=== PATIENT | male | born 1950 | race Caucasian/White ===

== ENCOUNTER 2021-09-28 05:33 | Outpatient (CLI) | payer MEDICARE ==
[~2021-09-28] VITALS: Ht 167.6 cm; Wt 88.0 kg
[~2021-09-28 05:33] MED LIST: AMIO200T65 PO; ASPI-586 PO; CARV6.252 PO; CHOL10007 PO; ESZO2TAB31 PO; LOSA50TA63 PO; METO-333 PO; PANT40TA2 PO; SERT50TA2 PO
[2021-09-28] MEDS ORDERED: FLUT16SP22 NS (15:27)
[2021-09-28] MEDS ORDERED: CARV12.53 PO (15:27)
[2021-09-28] MEDS ORDERED: IBUP-1780 PO (15:27)
[2021-09-28] MEDS ORDERED: ISOS30TA82 PO (15:27)
== END 2021-09-28 15:29 | disposition home or self-care (01) ==
LOC: PREOP 05:33
PROVIDERS: ATTEND Surgery
DX: Z01.818 Encounter for other preprocedural examination (principal)

== ENCOUNTER 2021-10-11 07:53 | Day surgery (SDC) | payer MEDICARE ==
[~2021-10-11] VITALS: Ht 167.6 cm; Wt 88.0 kg
[~2021-10-11 07:53] MED LIST changes: +CARV12.53 PO; +FLUT16SP22 NS; +IBUP-1780 PO; +ISOS30TA82 PO
[2021-10-11] MEDS ORDERED: LACTATED RINGERS 1,000 ML IV ONE (08:04)
[2021-10-11] MEDS ORDERED: LACTATED RINGERS 1,000 ML IV STA (08:12)
[2021-10-11 08:25] VITALS: BP 101/68
--- NOTE | 2021-10-11 08:52 | Progress Note-Pre Operative ---
Pre-Operative Progress Note H&P Reviewed The H&P was reviewed, patient examined and no changes noted. Date Seen by Provider: Oct 11, 2021 Time Seen by Provider: 08:52 Date H&P Reviewed: Oct 11, 2021 Time H&P Reviewed: 08:52 Pre-Operative Diagnosis: history of polyps JESSICA REED DO Oct 11, 2021 08:52
[2021-10-11] MEDS ORDERED: PROPOFOL INJECTION 50 ML IV ONE (09:09)
[2021-10-11 09:35] VITALS: BP 71/48
--- NOTE | 2021-10-11 09:36 | Anesthesia-General Post-Op ---
MAC Patient Condition Mental Status/LOC: Same as Preop Cardiovascular: Satisfactory Nausea/Vomiting: Absent Respiratory: Satisfactory Pain: Controlled Complications: Absent Post Op Complications Complications None Follow Up Care/Instructions Patient Instructions None needed. Anesthesiology Discharge Order Discharge Order Patient is doing well, no complaints, stable vital signs, no apparent adverse anesthesia problems. No complications reported per nursing. ROOSEVELT COSBY CRNA Oct 11, 2021 09:36
--- NOTE | 2021-10-11 09:37 | Progress Note-Post Operative ---
Post-Operative Progess Note Surgeon (s)/Fern Gatherer (s) Surgeon JESSICA REED DO Fern Gatherer: na Pre-Operative Diagnosis history of polyps Post-Operative Diagnosis colon polyps, diverticulosis Procedure & Operative Findings Date of Procedure 10/11/21 Procedure Performed/Findings colonoscopy c hot bx polypectomy x 2 Anesthesia Type per oil inspector Estimated Blood Loss Estimated blood loss (mL): none Specimens/Packing Specimens Removed colon polyps JESSICA REED DO Oct 11, 2021 09:37
[2021-10-11 09:40] VITALS: BP 79/50
[2021-10-11 09:42] VITALS: BP 79/50
[2021-10-11 10:00] VITALS: BP 75/57
--- NOTE | 2021-10-11 10:12 | Discharge Inst-Simple/Standard ---
Discharge Inst-Standard Patient Instructions/Follow Up Plan of Care/Instructions/FU: 2 weeks Alexandru Activity as Tolerated: Yes Discharge Diet: Regular Diet (high fiber) JESSICA REED DO Oct 11, 2021 10:12
--- NOTE | 2021-10-11 17:01 | OPERATIVE REPORT ---
DATE OF SERVICE: 10/11/2021 PREOPERATIVE DIAGNOSIS: History of colon polyps. POSTOPERATIVE DIAGNOSES: Colon polyps and diverticulosis. PROCEDURES PERFORMED: Colonoscopy with hot biopsy polypectomy x2. SURGEON: Jessica Horvath DO. ANESTHESIA: Per AS400 OPERATOR. ESTIMATED BLOOD LOSS: None. COMPLICATIONS: None. INDICATIONS FOR PROCEDURE: The patient is a 71-year-old male with history of colon polyps. He understands the risks and benefits of the procedure and wishes to proceed. Consent was signed in the chart. DESCRIPTION OF PROCEDURE: The patient was taken to the endoscopy suite and placed in the left lateral recumbent position. Timeout was performed. Digital rectal exam was performed. No palpable polyps, masses or ulcerations. Scope was inserted in the rectum and advanced all the way to cecum with minimal difficulty. Prep was adequate. Scope was slowly retracted back. No polyps, masses or ulcerations in the cecum. In the ascending colon, a small polyp was present, which hot biopsy polypectomy was performed. Scope was then continuously and slowly retracted back. No polyps, masses or ulcerations within the remainder of the ascending and transverse colon. In the descending colon, a small polyp was present, which hot biopsy polypectomy was performed. Scope was then continuously and slowly retracted back. No polyps, masses or ulcerations in the sigmoid, but there was some minimal amount of diverticulosis present. Scope was then continuously and slowly retracted back to the rectum, where it was also retroflexed noting no other pathology. Scope was returned to its normal position and slowly withdrawn until completely removed. The patient tolerated the procedure well without any complications and was taken to the recovery room in stable condition. RECOMMENDATIONS: The patient will follow up on pathology in couple of weeks. We would recommend high fiber diet due to diverticulosis. We would need repeat colonoscopy on as needed basis due to age. Any changes be reevaluated at that time. Job ID: [id number] DocumentID: [id number] Dictated Date: 10/11/2021 09:39:04 Energy Efficiency Engineer Date: 10/11/2021 17:00:22 Dictated By: JESSICA HORVATH DO
== END 2021-10-11 10:34 | disposition home or self-care (01) ==
LOC: ENDO 07:53
PROVIDERS: ATTEND Surgery
DX: Z12.11 Encounter for screening for malignant neoplasm of colon (principal); D12.2 Benign neoplasm of ascending colon; D12.4 Benign neoplasm of descending colon; K57.30 Diverticulosis of large intestine without perforation or abscess without bleeding; Z87.891 Personal history of nicotine dependence; Z79.02 Long term (current) use of antithrombotics/antiplatelets; Z79.82 Long term (current) use of aspirin
CPT/HCPCS: 88305